=== PATIENT | male | born 1945 | race African-American/Black ===

== ENCOUNTER 2017-01-02 17:54 | Emergency (ER) | payer SELFPAY ==
[~2017-01-02 17:54] MED LIST: BUME1TAB PO; ECOT81TA2 PO; METO50TA PO; PROT40TA PO
[2017-01-02 17:57] VITALS: BP 202/108; PULSE 82; RESP 20; TEMP 98.5; O2SAT 95
== END 2017-01-02 22:38 | disposition left against medical advice (07) ==
LOC: NED 17:54
DX: R68.89 Other general symptoms and signs (principal)
CPT/HCPCS: 99281

== ENCOUNTER 2017-07-11 16:06 | Emergency (ER) | payer SELFPAY ==
[~2017-07-11] VITALS: Ht 170.2 cm; Wt 75.0 kg
[2017-07-11 16:38] VITALS: BP 182/88; PULSE 63; RESP 12; TEMP 98.2; O2SAT 96
--- NOTE | 2017-07-11 22:42 | PD ---
Physical Exam Date Seen by Provider: Jul 11, 2017 Time Seen by Provider: 19:32 Narrative 72 year old male presents to the emergency department for evaluation of right ear pain for a few days. He also reports decreased hearing and sore throat. No fevers. According to family, the patient is on hospice for end-stage renal disease, CHF. Data Data Last Documented VS Vital Signs Date Time Temp Pulse Resp B/P (MAP) Pulse Ox O2 Delivery O2 Flow Rate FiO2 07/11/17 16:38 98.2 63 12 182/88 (119) 96 MDM Supervised Visit with VIVIANE: No Narrative Course 72-year-old male presents to the emergency department for evaluation right ear pain, decreased hearing, sore throat for approximately 3 days. Workup was initiated triage. Patient left AGAINST MEDICAL ADVICE before he was transferred to medical bed. Diagnosis Primary Impression: Left against medical advice Additional Impression: Ear pain Qualified Codes: H92.09 - Otalgia, unspecified ear Disposition: 07 AGAINST MEDICAL ADVICE Yessi Sherwood Jul 11, 2017 22:41
== END 2017-07-11 19:32 | disposition left against medical advice (07) ==
LOC: NED 16:06
DX: H92.01 Otalgia, right ear (principal)
CPT/HCPCS: 99281